=== PATIENT | female | born 1985 | race Caucasian/White ===

== ENCOUNTER → 2021-12-02 | Day surgery (SDC) | payer MEDICARE, OTHER ==
[2021-11-30 14:35] LABS: BASOPHILS # (AUTO) 0.1 (0.0-0.1); BASOPHILS % 0.9 % (0.0-1.0); EOSINOPHILS # (AUTO) 0.2 (0.0-0.4); EOSINOPHILS % 2.7 % (0.0-6.0); HEMATOCRIT 29.7 % (34.2-44.1); HEMOGLOBIN 8.4 g/dL (12.0-16.0); LYMPHOCYTES # (AUTO) 3.6 (1.0-3.2); LYMPHOCYTES % 40.6 % (18.0-39.1); MEAN CORPUSCULAR HGB CONC 28.3 g/dL (31-35); MONOCYTES # (AUTO) 0.6 (0.2-0.8); MONOCYTES % 6.2 % (4.4-11.3); NEUTROPHILS # (AUTO) 4.4 (2.1-6.9); NEUTROPHILS % 49.3 % (38.7-80.0); PLATELET COUNT 482 x10e3/uL (140-360); RED BLOOD COUNT 4.43 x10e6/uL (3.6-5.1); RED CELL DISTRIBUTION WIDTH 18.6 % (11.7-14.4)
[2021-11-30 15:00] LABS: ANION GAP 14.4 mmol/L (8-16); CALCIUM 9.7 mg/dL (8.4-10.2); CREATININE, SERUM 0.73 mg/dL (0.57-1.11); POTASSIUM 4.4 mmol/L (3.5-5.1)
[~2021-12-02] MED LIST: BEPREVE10 ML; BUPIVACAINE HCL 0.5% INJ 30 ML VIAL INJ ONE; CETIRIZINE HCL10 MG; CLOZAPINE25 MG; CYMBALTA30 MG; DEXAMETHASONE SOD PHOS INJ 4 MG/ML SDV ONE; DEXILANT30 MG PO; EFFEXOR XR150 MG PO; ELIQUIS2.5 MG PO; ERGOCALCIFEROL1 GM; FENTANYL CITRATE/PF 100MCG/2 ML INJ ONE; GABAPENTIN600 MG; GLYCOPYRROLATE INJ 0.2 MG/ML VIAL ONE; KEPPRA500 MG PO; KETAMINE HCL INJ 50 MG/ML 10 ML VIAL ONE; LIDOCAINE HCL 2% LOCAL INJ 5 ML SDV VIAL INJ ONE; LOSARTAN POTASS25 MG PO; MEPERIDINE HCL INJ 25 MG/ML VIAL ONE; METFORMIN HCL500 MG PO; METOPROLOL SUCC50 MG PO; MIDAZOLAM HCL 2 MG/2 ML VIAL ONE; MINIPRESS2 MG PO; MIRTAZAPINE15 MG PO; ONDANSETRON HCL INJ 2MG/ML 2ML 2 MG/ML VIAL ONE; POVIDONE IODINE 0.05% 0.05 % ML PO ONE; PROAIR HFA INH8.5 GM; PROPOFOL IV EMULSION 10 MG/ML 20 ML VIAL ONE; RETIN A; ROCURONIUM BROMIDE 10 MG/ML 5ML VIAL IV ONE; ROPIVACAINE 0.5% 5 MG/ML 30 ML SDV ONE; SEVOFLURANE INHAL SOLN 250 ML PEN BTL ONE; SODIUM CHLORIDE 0.9% 50ML 100 ML ONE; SUGAMMADEX SODIUM 200 MG/2 ML VIAL IV ONE; ULTRAM50 MG PO; VIMPAT150 MG; Vancomycin IV 500 MG ONE
[2021-12-02 18:05] VITALS: BP 136/74
== END | disposition home or self-care (01) ==
LOC: OR 08:38
PROVIDERS: ATTEND Orthopaedic Surgery
DX: S42.022A Displaced fracture of shaft of left clavicle, initial encounter for closed fracture (principal); E11.9 Type 2 diabetes mellitus without complications; I10 Essential (primary) hypertension; J45.909 Unspecified asthma, uncomplicated; F40.00 Agoraphobia, unspecified; Q79.60 Ehlers-Danlos syndrome, unspecified; G40.909 Epilepsy, unspecified, not intractable, without status epilepticus; F84.5 Asperger's syndrome; F17.290 Nicotine dependence, other tobacco product, uncomplicated; V89.2XXA Person injured in unspecified motor-vehicle accident, traffic, initial encounter; Z88.1 Allergy status to other antibiotic agents; Z88.8 Allergy status to other drugs, medicaments and biological substances; Z01.810 Encounter for preprocedural cardiovascular examination; Z01.812 Encounter for preprocedural laboratory examination; Z01.818 Encounter for other preprocedural examination; Z20.822 Contact with and (suspected) exposure to COVID-19; Z79.02 Long term (current) use of antithrombotics/antiplatelets; Z79.84 Long term (current) use of oral hypoglycemic drugs; Z79.899 Other long term (current) drug therapy; Z98.890 Other specified postprocedural states
CPT/HCPCS: 23515; 36415 ×2; 71046; 76000; 80048; 81025; 82948; 85025; 87071; 87075; 87205; 93005; C1713 ×5; J0690; J1100; J2001; J2175; J2250; J2405; J2704; J2795; J3010; J3370; U0002